=== PATIENT | female | born 1950 | race Caucasian/White ===

== ENCOUNTER 2023-06-12 16:30 | Inpatient (IN) | payer MEDICARE, OTHER ==
[~2023-06-12] VITALS: Ht 172.7 cm; Wt 70.6 kg
[2023-06-12 16:46] VITALS: BP 94/54; PULSE 91; TEMP 97.7
[2023-06-12] MEDS ORDERED: RECLAST5 MG/100 M IV (16:51)
[2023-06-12] MEDS ORDERED: FASENRA30 MG/1 ML SQ (16:51)
[2023-06-12] MEDS ORDERED: SINGULAIR 110 MG/TAB PO (16:52)
[2023-06-12] MEDS ORDERED: MELATONIN5 M1 PO (16:52)
[2023-06-12] MEDS ORDERED: ZYRTEC 10MG10 MG PO (16:53)
[2023-06-12] MEDS ORDERED: VITAMIN D31000 IU PO (16:54)
[2023-06-12] MEDS ORDERED: PRILOSEC 20MG20 MG PO (16:55)
[2023-06-12] MEDS ORDERED: PRESERVISION1 SGL PO (16:55)
[2023-06-12] MEDS ORDERED: [UNRECOGNIZED DRUG - OTHER] PO (16:58)
[2023-06-12] MEDS ORDERED: NS 1,000 ML IV SCH (17:15)
[2023-06-12] MEDS ORDERED: Ondansetron 4 MG/2 ML VIAL IV PRN (17:15)
[2023-06-12] MEDS ORDERED: D5NS 1,000 ML IV SCH (17:30)
[2023-06-12 18:45] LABS: HEMOGLOBIN 11.8 g/dl (12.5-16.0); MEAN CELL VOLUME 102 fl (80.0-100.0); MEAN CORPUSCULAR HEMOGLOBIN 37 pg (27-31); MEAN CORPUSCULAR HGB CONC 36 g/dl (33.0-37.0); MEAN PLATELET VOLUME 9.5 fl (7.4-10.4); PLATELET COUNT 260 K/mm3 (130-400); RED BLOOD COUNT 3.22 M/mm3 (4.10-5.30); REDCELL DISTRIBUTION WIDTH-CV 16.1 % (11.5-14.5)
[2023-06-12 18:50] LABS: HEMATOCRIT 32.7 % (37.0-47.0)
[2023-06-12 19:03] LABS: CALCIUM 8.2 mg/dL (8.4-10.2); CREATININE, serum 2.11 mg/dL (0.57-1.11); POTASSIUM 3.8 mmol/L (3.5-4.5)
[2023-06-12 19:11] VITALS: BP_SYST 94
--- NOTE | 2023-06-12 19:22 | NUR ---
Patient direct admit from her primary care office. Hospitalist team rounded. Cardiology and Surgical consults called. made aware of unsuccessful attempt at inserting NG tube. Patient did not tolerate well. KUB ordered for AM. IVF as ordered. Scds ble. Patient to remains NPO. He spouse at bedside. Admission and med rec completed. Bedside report to Samreen to resume cares.
[2023-06-12 19:43] VITALS: BP 92/58; PULSE 80; TEMP 97.7
[2023-06-12] MEDS ORDERED: Albuterol/Ipratropium 3 MG-0.5 MG/3 ML Neb Soln IH SCH (20:00)
[2023-06-12 20:24] LABS: PHOSPHOROUS 4.1 mg/dL (2.3-4.7)
[2023-06-12] MEDS ORDERED: Acetaminophen 325 MG TAB PO PRN (20:45)
[2023-06-12] MEDS ORDERED: diphenhydrAMINE 25 MG CAP PO SCH (21:00)
--- NOTE | 2023-06-12 21:05 | NUR ---
PT ASKING FOR SOMETHING FOR SLEEP, TAKES MELATONIN AT HOME BUT REPORTS IT DOESN'T REALLY HELP HER. NOTIFIED JANEL PAPER BAG MACHINE OPERATOR, NEW ORDER GIVEN. MEDICATED WITH BENADRYL 25MG PO AND TYLENOL 650MG PO FOR SLEEP. ASSISTED TO BATHROOM, VOIDS AND BACK TO BED. IVF TO LFA INFUSING WITHOUT PROBLEM. DENIES NAUSEA OR PAIN AT THIS TIME.
[2023-06-12] MEDS ORDERED: *Potassium Replacement Protocol MC SCH (22:15)
--- NOTE | 2023-06-12 23:30 | NUR ---
PTS B/P , NOTIFIED CHARMAINE MANNING NEW ORDER FOR LR BOLUS.
--- NOTE | 2023-06-12 23:42 | NUR ---
LR BOLUS INITIATED TO LFA. PT AWARE OF LOW B/P AND DESIRED AFFECT FROM BOLUS.
[2023-06-12] MEDS ORDERED: LR 1,000 ML IV ONE (23:45)
[2023-06-12] MEDS ORDERED: LASIX 40MG TABL40 MG PO (23:46)
[2023-06-12] MEDS ORDERED: PRINIVIL5 MG PO (23:46)
[2023-06-13] VITALS (35 sets, daily range): BP systolic 70–120; BP diastolic 39–68; PULSE 66–144; TEMP 97.3–98.1; O2SAT 69–99
--- NOTE | 2023-06-13 01:20 | NUR ---
PT'S B/P REMAINS LOW, CHARMAINE DAVE NOTIFIED. PT WILL TRANSFER TO ICU RM#2.
--- NOTE | 2023-06-13 01:50 | NUR ---
TRANSFERRED VIA BED TO ICU RM 2. REPORT GIVEN TO NALDO GAMBOA.
--- NOTE | 2023-06-13 01:50 | NUR ---
PATIENT ARRIVED FROM FLOOR VIA BED. PATIENT ARRIVED ON ROOM AIR. SYSTOLIC PRESSURES IN THE 80'S. PATIENT HAS NO COMPLAINTS AND IS A/0X4. PATIENT ARRIVED WITH GLASSES, RING, PURSE, PHONE, AND CLOTHING. ESPERANZA ELI NOTIFIED OF PATIENTS ARRIVAL TO UNIT.
[2023-06-13] MEDS ORDERED: Albumin (Human) 100 ML IV ONE (03:00)
[2023-06-13] MEDS ORDERED: Morphine 4 MG/ML VIAL IV PRN (03:15)
[2023-06-13 03:26] LABS: BASO # 0.1 K/mm3 (0.0-0.2); BASO % 0.9 % (0.0-2.0); EOS # 0.2 K/mm3 (0.0-0.7); EOS % 2.3 % (0.0-4.0); GRAN % 33.3 % (42.2-75.2); LYMPH # 4.6 K/mm3 (1.2-3.4); MEAN CELL VOLUME 102 fl (80.0-100.0); MEAN CORPUSCULAR HEMOGLOBIN 36 pg (27-31); MEAN CORPUSCULAR HGB CONC 36 g/dl (33.0-37.0); MEAN PLATELET VOLUME 9.1 fl (7.4-10.4); MONO # 1.1 K/mm3 (0.1-0.6); MONO % 12.3 % (1.7-9.3); PLATELET COUNT 252 K/mm3 (130-400); RED BLOOD COUNT 3.03 M/mm3 (4.10-5.30); REDCELL DISTRIBUTION WIDTH-CV 16.4 % (11.5-14.5)
[2023-06-13 03:31] LABS: HEMATOCRIT 30.8 % (37.0-47.0)
[2023-06-13 03:36] LABS: INR 1.1 (0.8-3.0)
[2023-06-13 03:48] LABS: CALCIUM 7.9 mg/dL (8.4-10.2); CREATININE, serum 2.41 mg/dL (0.57-1.11); POTASSIUM 3.8 mmol/L (3.5-4.5)
[2023-06-13] MEDS ORDERED: Pantoprazole 40 MG in NS 10 ML IV ONE (04:00)
[2023-06-13] MEDS ORDERED: Potassium Chloride 100 ML IV ONE (06:00)
[2023-06-13 06:33] LABS: URINE APPEARANCE TURBID (CLEAR/HAZY); URINE BLOOD 2+ (NEGATIVE); URINE COLOR Dark Yellow (YELLOW); URINE GLUCOSE NEGATIVE (NEGATIVE); URINE KETONE TRACE (NEGATIVE); URINE NITRATE NEGATIVE (NEGATIVE); URINE PROTEIN(semi-quant) 4+ (NEGATIVE)
[2023-06-13] MEDS ORDERED: Ondansetron 4 MG/2 ML VIAL IV PRN (06:45)
--- NOTE | 2023-06-13 07:00 | NUR ---
Report received from BEE Scott. Pt alert and oriented. Complaints of mouth being dry; pt given mouth swabs and educated on why she is NPO at this time. Levophed infusing into left forearm; BP adequate. FC to dependent drainage; Amy urine draining. Pt c/o substernal chest pain rated 4/10. Dr. Salgado aware. Still having nausea depsite being given zofran recently. Call light in reach.
[2023-06-13 07:02] LABS: COLLECTION METHOD CLEAN CATCH; URINE BACTERIA MANY /hpf (NONE SEEN); URINE RBC 0-2 /hpf (0-2)
--- NOTE | 2023-06-13 08:18 | NUR ---
This nurse notified by dictaphone technician at this time that pt's heart rate increased from 100 and is now in the 160's. RT called for EKG. This nurse at the bedside. Dr. Kim Wright and Dr. Salgado called and made aware. TORB from Dr. Salgado for 300mg amiodarone bolus. EKG showing AFIB RVR. 913- Dr. Salgado at the bedside with this nurse. Heart rate now in the 170's. VORB from Dr. Salgado to give 12mg adenosine IVP. 12mg adenosine given at 913. Pt's heart heart dropped to 40's briefly but then came back up to 130's. Order from Dr. Salgado to continue amiodarone gtt at 1mg/min. 929- Pt taken to CT for CT of Chest for concern of increase chest pain radiating to the back and moving down towards abdomen. 1108- Pt heart rate suddenly dropped from 140's down to 40's. Dr. Kim Wright in ICU at that time and made aware. Dr. Salgado also called and made aware. Order from Dr. Salgado to d/c amiodarone gtt. Restart levophed gtt due to BP dropping along with heart rate. [id number]: Pt back to organic lab worker with this nurse present for heart cath. Pt remained stable through out procedure. Back in ICU 2. Lies supine and reminded to not bend right leg or try to sit up. Flat time for 4 hours. Pt being titrated of neosynephrine gtt and dobuatime order placed.
[2023-06-13] MEDS ORDERED: Amiodarone 450 MG in D5W Excel 250 ML IV SCH ×2 (08:57→14:57)
[2023-06-13] MEDS ORDERED: Pantoprazole 40 MG in NS 10 ML IV SCH (09:00)
[2023-06-13] MEDS ORDERED: Adenosine 6 MG/2 ML VIAL IV ONE ×3 (09:14→09:15)
[2023-06-13] MEDS ORDERED: Phenylephrine 20 MG in NS 250 ML IV SCH (09:30)
--- NOTE | 2023-06-13 09:36 | NUR ---
flying squad worker met with pt's , Alvaro [phone] to complete intake due to patient in CT scan. Alvaro reports they live together in [place], [place]. She sees Kim Barragan for PCP needs and obtains medications from [facility] with no difficulties. She is independent with ADLS and uses a CPAP for DME. Alvaro reports he is DPOA-HC, but the copy is at home. He will attempt to bring this in when able. PT/OT pending Discharge Plan: [facility]
[2023-06-13] MEDS ORDERED: LR 1,000 ML IV SCH (10:15)
--- NOTE | 2023-06-13 10:50 | NUR ---
Levophed gtt discontinued and neosynephrine gtt initiated at this time per orders from Dr. Kim Wright and Dr. Salgado.
[2023-06-13] MEDS ORDERED: Iohexol 350 - 100 ML VIAL INCOR ONE (13:36)
[2023-06-13] MEDS ORDERED: Midazolam 2 MG/2 ML VIAL IV SCH (13:38)
[2023-06-13] MEDS ORDERED: Furosemide 40 MG/4 ML VIAL IV SCH (13:38)
[2023-06-13] MEDS ORDERED: fentaNYL 50 MCG/ML 2 ML VIAL IV SCH (13:39)
--- NOTE | 2023-06-13 13:54 | NUR ---
Bedside report completed with Shakira GAMBOA at this time. Lines and drips as they were upon pickup. Groin site reviewed. First set of vitals reviewed. Shakira GAMBOA denies questions/concerns at this time.
--- NOTE | 2023-06-13 13:57 | NUR ---
See merge for all laboratory apparatus glass grinder medication, intervention, vital sign times.
[2023-06-13] MEDS ORDERED: 1/2 NS 1,000 ML IV SCH (14:30)
[2023-06-13] MEDS ORDERED: DOBUTamine/D5W 250 ML IV SCH (14:30)
--- NOTE | 2023-06-13 14:31 | NUR ---
Dr. Kim Wright notified of blood in urine at this time. Will send urine for repeat UA.
--- NOTE | 2023-06-13 15:25 | NUR ---
This nurse notified by support service tech that pt's heart rate now in 160's and pt hypotensive. This nurse went to pt's bedside to assess pt; Loida, BEE also at the bedside. Upon assessment pt very restless with poor color, heart rate in the 160's, pulse weak and thready. Dr. Salgado paged at 1527. While waiting for return call from Dr. Salgado, pt continued to be restless, heart rate remained in 160's. At 1531 pt's heart rate eduardo'd down to the 30's; Dr. Kim Wright was called at this time to come to bedside. After ending call with Dr. Wright, pulse was lost and CPR was initiated by BEE Mariscal. Pt was coded from 1531 until 1551 when a pulse was regained. Pt was intubated by Dr. Beth during code with 8.[address] Beth states that there was moderate amount of blood in the airway and ETT that appeared to reflect pulmonary edema. Pt's Alvaro arrived to bedside during code and was updated by Dr. Wright on events that had occured prior to his arrival. 1610 Dr. Salgado was paged due to pt's heart rate increasing to 180. 1616 Dr. Salgado returned page and ordered 150mg amiodarone bolus IVP. 1618 amiodarone bolus administered. After ROSC was acheived pt's made decision to make pt a DNR; but okay to proceed with currently treatment and keep intubated on ventilator. 1706 pt's heart rate dropped from 120's down to the 20's; pulse felt but very weak. Pt's requests at this time that we "let pt go." All IV medications were placed in stand by and pt was removed from ventilator. At 1729 pt's had no electrical activity on monitor and absence of heart tones were verified by this nurse and BEE Dunne. Dr. Kim Aguilera, Dr. Salgado, and warehouse manager aware of pt's . Pt's at the bedside as pt passed. Pt's wedding ring was removed by this nurse and given to . Pt's also took home pt's purse and clothing. Please see Code Blue record for events during code, EMAR for medications administered, and Gtt titration flowsheet for drsiddhartha.
[2023-06-13] MEDS ORDERED: Calcium Chloride 1,000 MG (13.6 mEq)/10 ML SYRINGE IV ONE (15:31)
[2023-06-13] MEDS ORDERED: Atropine 1 MG/10 ML SYRINGE IV ONE (15:31)
[2023-06-13] MEDS ORDERED: EPINEPHrine 1 MG/10 ML (1:10,000) SYRINGE IV ONE (15:32)
[2023-06-13] MEDS ORDERED: Sodium Bicarbonate 8.4% 50 MEQ/50 ML SYRINGE IV ONE (15:40)
[2023-06-13] MEDS ORDERED: Rocuronium 50 MG/5 ML Multi-Dose VIAL IV ONE (15:42)
[2023-06-13] MEDS ORDERED: Midazolam 2 MG/2 ML VIAL IV PRN (16:00)
[2023-06-13] MEDS ORDERED: fentaNYL 100 ML IV SCH (16:00)
[2023-06-13] MEDS ORDERED: Albuterol/Ipratropium 3 MG-0.5 MG/3 ML Neb Soln IH PRN (16:00)
[2023-06-13] MEDS ORDERED: Naloxone 0.4 MG/ML VIAL IV PRN (16:00)
--- NOTE | 2023-06-13 16:00 | NUR ---
1600 ASSESSMENT LIMITED DUE TO PT CODING FROM [id number].
[2023-06-13] MEDS ORDERED: Amiodarone 150 MG/3 ML VIAL IV ONE (16:18)
--- NOTE | 2023-06-13 16:35 | NUR ---
kennel worker notified of pt experiencing a code. SW called , Alvaro and was informed he is 10 minutes away. arrived promptly and spoke with Dr. dimitrios Wright. He endorses that their children lives 10 hours away and will not be able to come at this time. SW was informed would like pt to now be a DNR. SW contacted Lime Plant Operator Serene who arrived to meet with Alvaro. No further SW needs at this time.
--- NOTE | 2023-06-13 17:44 | NUR ---
Initial visit; came in for a Code Blue regarding Prernae. Patient's Alvaro thanked for looking in on him and eventually when all settled down in the room after tests were done and 's visited, offered prayer for Cely. As time wore on remained with Alvaro at Cely's bedside until she passed at 5:21pm. then said the @[facility]. Alvaro thanked for being with him and was then more comfortable being alone with Cely while speaking with nurses and preparing to contact his four children and their families.
--- NOTE | 2023-06-13 18:48 | NUR ---
AROUND 1510 PATIENT HAD COMPLAINTS OF NAUSEA, PRIMARY NURSEPAULO, OFF UNIT FOR MEETING. THIS NURSE PROVIDED ZOFRAN PER EMAR. PATIENT REPORTED FEELING ANXIOUS. AROUND 1515 PATIENT STARTED TO BECOME INCREASINGLY RESTLESS AND HEART RATE TACH'D UP INTO 170's. BLOOD PRESSURE DROPPED TO 70s/30s. THIS NURSE HAD BEE QUINONES SITTING TELE CALL PAULO, PRIMARY RN & TRACE EVIDENCE TECHNICIAN, TO COME BACK TO ROOM AROUND 1625. PATIENT'S HEART RATE THEN DROPPED SUDDENLY INTO THE 30s AND PULSE WAS NOT FELT. COMPRESSIONS STARTED AT 1631 BY THIS NURSE. TRACE EVIDENCE TECHNICIAN, PAULO, CALLED OUT FOR CRASH CART AND PLACED CALL TO PHYSICIAN AND HOUSE.
--- NOTE | 2023-06-13 19:14 | NUR ---
PT INTUBATED PER DR CRUZ WITH 8.0 ETT 23@TEETH ETCO2 DECECTOR COLOR CHANGE. BS BILAT. PLACED ON VENT PER CHARTED SETTINGS
--- NOTE | 2023-06-13 19:22 | NUR ---
CALLED TO ROOM TO REMOVE VENTILATOR AT APPROXIMATELY 1715. FAMILY AT BEDSIDE AND RN CASE LINER EDDA Vaughan
--- NOTE | 2023-06-13 20:01 | NUR ---
1910 Per [place] at [facility]. No organ. Pending [facility]. 1956 Per Arturo at [facility] okay to release patient to home
--- NOTE | 2023-06-13 20:50 | NUR ---
All invasive lines and tubes removed from patient at this time prior to being released to home. Lines removed included a 20G in the L wrist, ET tube, OG tube, RUE PICC line, and fitzgerald catheter. Per report received from BEE Rosenberg, all patient belongings sent home with family.
--- NOTE | 2023-06-13 21:00 | NUR ---
Patient's body released to home at this time.
== END 2023-06-13 21:00 | disposition expired | DRG 388 ==
LOC: ICU 16:30 → SURG 16:30 → ICU 06-13 01:46
PROVIDERS: Nurse Practitioner Family; ADMIT Internal Medicine
PROC: 02HV33Z Insertion of Infusion Device into Superior Vena Cava, Percutaneous Approach (ICD-10-PCS; principal; 2023-06-13)
PROC: 4A023N7 Measurement of Cardiac Sampling and Pressure, Left Heart, Percutaneous Approach (ICD-10-PCS; 2023-06-13)
PROC: B2111ZZ Fluoroscopy of Multiple Coronary Arteries using Low Osmolar Contrast (ICD-10-PCS; 2023-06-13)
PROC: 5A12012 Performance of Cardiac Output, Single, Manual (ICD-10-PCS; 2023-06-13)
PROC: 0BH17EZ Insertion of Endotracheal Airway into Trachea, Via Natural or Artificial Opening (ICD-10-PCS; 2023-06-13)
PROC: 5A1935Z Respiratory Ventilation, Less than 24 Consecutive Hours (ICD-10-PCS; 2023-06-13)
DX: K56.609 Unspecified intestinal obstruction, unspecified as to partial versus complete obstruction (principal); I50.21 Acute systolic (congestive) heart failure; J96.00 Acute respiratory failure, unspecified whether with hypoxia or hypercapnia; I42.8 Other cardiomyopathies; J82.83 Eosinophilic asthma; E87.1 Hypo-osmolality and hyponatremia; J90 Pleural effusion, not elsewhere classified; J98.11 Atelectasis; N17.9 Acute kidney failure, unspecified; Z66 Do not resuscitate; I95.9 Hypotension, unspecified; M81.0 Age-related osteoporosis without current pathological fracture; I46.9 Cardiac arrest, cause unspecified; I45.10 Unspecified right bundle-branch block; I45.81 Long QT syndrome; D53.9 Nutritional anemia, unspecified; I48.91 Unspecified atrial fibrillation; R79.89 Other specified abnormal findings of blood chemistry; K76.89 Other specified diseases of liver; R57.0 Cardiogenic shock; N20.0 Calculus of kidney; N18.9 Chronic kidney disease, unspecified; N28.1 Cyst of kidney, acquired; K21.9 Gastro-esophageal reflux disease without esophagitis; Z87.442 Personal history of urinary calculi; Z79.899 Other long term (current) drug therapy
CPT/HCPCS: A4314; A9500-JZ; C1751; C1760; C1894; C9113; J0153; J0171; J0282; J0461; J1250; J1644; J1720; J1940; J2250; J2270; J2371; J2405; J3010; J3480; J7042; J7050; J7060; J7120; P9047; Q3014; Q9967